=== PATIENT | female | born 1975 | race Caucasian/White ===

== ENCOUNTER 2023-04-07 21:26 | Emergency (ER) | payer SELFPAY ==
[~2023-04-07] VITALS: Ht 160 cm; Wt 48.1 kg
[2023-04-07 21:56] VITALS: BP 122/88; PULSE 71; RESP 18; TEMP 98.3; O2SAT 98
[2023-04-07 23:15] LABS: BILIRUBIN,URINE NEGATIVE (Neg); GLUCOSE, URINE NEGATIVE (Neg); KETONES,URINE NEGATIVE (Neg); LEUKOCYTE ESTERASE ,URINE MODERATE (Neg); OCCULT BLOOD,URINE TRACE-INTACT (Neg); PROTEIN,URINE NEGATIVE (Neg); UROBILINOGEN,URINE 0.2 E.U/dL (0.2-1.0)
[2023-04-07 23:18] LABS: URINE HCG NEGATIVE (NEG)
[2023-04-07 23:19] LABS: CLARITY,URINE SLIGHTLY CLOUDY (Clear); UA COLLECTION TYPE CLN CATCH MIDSTREAM
[2023-04-07 23:25] LABS: COLOR,URINE DARK YELLOW (Yellow); NITRITES, URINE NEGATIVE (Neg)
[2023-04-07 23:26] LABS: RBC,URINE 0-2 /HPF (0-2)
[2023-04-07 23:27] LABS: BACTERIA,URINE 1+ /HPF (Neg); MUCUS STRANDS FEW /LPF (Neg); SQUAMOUS EPITHELIAL CELL,UR FEW /LPF (FEW); TRANSITIONAL EPI CELLS,URINE FEW /HPF; WBC CLUMPS,URINE FEW /HPF (NEGATIVE)
[2023-04-08] MEDS ORDERED: ciprofloxacin 250mg tablet PO ONE (00:45)
[2023-04-08] MEDS ORDERED: ondansetron 4mg rapidly disintigrating tab PO ONE (00:45)
[2023-04-08] MEDS ORDERED: CefTRIAXone 1000mg IM Kit (w/lidocaine diluent) IM ONE (00:45)
[2023-04-08] MEDS ORDERED: CIPR750T14 PO (00:47)
== END 2023-04-08 01:40 | disposition home or self-care (01) ==
LOC: ER 21:28
DX: N39.0 Urinary tract infection, site not specified (principal)
CPT/HCPCS: 81001; 81025; 87088; 96372; 99284; J0696